=== PATIENT | male | born 1965 | race Caucasian/White ===

== ENCOUNTER 2018-02-20 15:58 | Emergency (ER) | payer MEDICARE, OTHER ==
[~2018-02-20] VITALS: Ht 177.8 cm; Wt 150.0 kg
[~2018-02-20 15:58] MED LIST: ATORVASTATIN CA40 MG PO; BUSPAR5 MG PO; GLIMEPIRIDE2 MG PO; LEVOTHYROXIN50 MCG PO; METOPROL TAR25 MG PO; PANTOPRAZOLE SO40 MG PO; RISPERIDONE2 MG PO; TRAZODONE50 MG PO
[2018-02-20 16:35] LABS: HEMATOCRIT 43.9 % (39.0-50.0); HEMOGLOBIN 14.6 g/dl (14.0-18.0); IMMATURE GRANULOCYTES 0.6 % (0.0-5.0); MEAN CELL VOLUME 85.6 fL CALC (80.0-100.0); MEAN CORPUSCULAR HGB 28.5 pG CALC (26.0-32.0); MEAN CORPUSCULAR HGB CONC 33.3 g/L CALC (32.0-36.0); NEUT# 7.35 thou/uL (1.82-7.42); RED BLOOD COUNT 5.13 mill/uL (4.70-6.10); RED CELL DISTRI WIDTH 13.1 % (11.5-15.5)
[2018-02-20 16:55] LABS: ANION GAP 14 (6-22 (CALC)); BUN 10 mg/dL (9-20); BUN/CREATININE RATIO 8 (12-20 (CALC)); CARBON DIOXIDE 29 mmol/l (22-30); CHLORIDE 101 mmol/l (95-108); CREATININE 1.2 mg/dL (0.7-1.3); GFR > 60 ML/MIN (>=60 (CALC)); GFR FOR AFR.AMER. > 60 ML/MIN (>=60 (CALC)); POTASSIUM 4.2 mmol/l (3.5-5.1); SODIUM 140 mmol/l (137-146)
[2018-02-20 17:44] LABS: INFLUENZA A NONE DETECTED (NONE DETECT); INFLUENZA B NONE DETECTED (NONE DETECT)
[2018-02-20] MEDS ORDERED: DOXYCYC MONO100 M2 PO (17:54)
[2018-02-20] MEDS ORDERED: PROAIR HFA108 MCG/AC PO (17:54)
[2018-02-20 18:09] VITALS: BP 174/79
== END 2018-02-20 18:28 | disposition home or self-care (01) ==
LOC: ED 15:58
PROVIDERS: Family Medicine
DX: J20.9 Acute bronchitis, unspecified (principal); R06.02 Shortness of breath